=== PATIENT | female | born 1990 | race African-American/Black ===

== ENCOUNTER → 2017-03-18 | Outpatient (CLI) | payer OTHER ==
--- NOTE | 2017-03-18 10:23 | KCIC ---
Ultrasound soft tissue Indication: Status post August 2016. Patient complains of pain at the incision site on the left side. Sonographic interrogation of the area of pain at the incision site was performed. No fluid collection or mass is identified. No abnormal vascularity is seen. Impression: Unremarkable soft tissue ultrasound, as described. Electronically signed by: Nicholas Briseno MD (March 18, 2017 10:21:52)
== END | disposition home or self-care (01) ==
LOC: KCIC US 09:00
PROVIDERS: ATTEND Obstetrics & Gynecology
DX: R10.2 Pelvic and perineal pain (principal); R19.00 Intra-abdominal and pelvic swelling, mass and lump, unspecified site
CPT/HCPCS: 76857